=== PATIENT | male | born 1970 | race Caucasian/White ===

== ENCOUNTER → 2016-05-25 | Outpatient (CLI) | payer BC ==
--- NOTE | 2016-05-25 16:47 | CT ---
EXAMINATION TYPE: CT brain wo con DATE OF EXAM: 05/25/2016 1:56 PM COMPARISON: NONE INDICATION: Patient complains of dizziness, motion sickness, headache, and blurry vision. DLP: 975 mGycm, Automated exposure control for dose reduction was used. CONTRAST: None CT of the brain is performed utilizing 3 mm thick sections through the posterior fossa and 3 mm thick sections through the remaining calvarium. Study is performed within 24 hours of arrival to the [facility]. No abnormal hyperdensity is present to suggest an acute intracranial hemorrhage. No mass lesion is evident. No acute infarcts are evident. Ventricles and sulci are appropriate for the patient age. Paranasal sinuses and mastoid air cells within the [id number] are clear. IMPRESSIONS: 1. Normal CT Brain
== END | disposition home or self-care (01) ==
LOC: RADCTMAIN 13:37
PROVIDERS: ATTEND Internal Medicine
DX: M54.2 Cervicalgia (principal); R55 Syncope and collapse
CPT/HCPCS: 70450

== ENCOUNTER → 2016-06-04 | Outpatient (CLI) | payer BC ==
--- NOTE | 2016-06-04 10:39 | US ---
EXAMINATION TYPE: US carotid duplex BILAT DATE OF EXAM: 06/04/2016 9:27 AM COMPARISON: NONE CLINICAL HISTORY: 45-year-old male dizziness, HTN, no history of stroke. TECHNIQUE: Duplex Doppler ultrasound of the carotid and vertebral vasculature. Indirect Doppler crite mary utilized. FINDINGS: Bauer scale images show very mild plaque at both bifurcations. RIGHT: Peak Systolic Velocity (PSV) cm/sec ----- Right CCA: 43.8 ----- Right ICA: 64.5 ----- Right ECA: 77.6 ICA/CCA ratio: 1.5 RIGHT: End Diastole cm/sec ----- Right CCA: 14.0 ----- Right ICA: 27.5 ----- Right ECA: 77.6 LEFT: Peak Systolic Velocity (PSV) cm/sec ----- Left CCA: 66.0 ----- Left ICA: 60.2 ----- Left ECA: 67.7 ICA/CCA ratio: 0.9 LEFT: End Diastole cm/sec ----- Left CCA: 18.8 ----- Left ICA: 29.6 ----- Left ECA: 18.0 VERTEBRALS (direction of flow): Right Vertebral: Antegrade Left Vertebral: Antegrade IMPRESSION: No hemodynamically significant stenosis appreciated in either internal carotid artery. Criteria for Assigning % of Stenosis / Diameter reduction (Estimation based on the indirect measurements of the internal carotid artery velocities (ICA PSV). 1. Normal (no stenosis)=ICA PSV < 125 cm/s: ratio < 2.0: ICA EDV<40 cm/s. 2. Less than 50% stenosis=ICA PSV < 125 cm/s: ratio < 2.0: ICA EDV<40 cm/s. 3. 50 to 69% stenosis=ICA PSV of 125 to 230 cm/s: ration 2.0 ? 4.0: ICA EDV 40-100 cm/s. 4. Greater than 70% stenosis to near occlusion= ICA PSV > 230 cm/s: ratio > 4.0: ICA EDV > 100 cm/s. 5. Near occlusion= ICA PSV velocities may be low or undetectable: variable ratio and ICA EDV. 6. Total occlusion=unable to detect flow.
--- NOTE | 2016-06-04 12:55 | ECHOF ---
Referral Reason:R07.9 chest pain R55 snycope I10 htn MEASUREMENTS -------- HEIGHT: 170.2 cm WEIGHT: 86.2 kg BP: 138/90 RVIDd: 2.9 cm (< 3.3) IVSd: 1.1 cm (0.6 - 1.1) LVIDd: 3.6 cm (3.9 - 5.3) LVPWd: 1.1 cm (0.6 - 1.1) IVSs: 1.5 cm LVIDs: 2.6 cm LVPWs: 1.9 cm LA Diam: 3.9 cm (2.7 - 3.8) LAESV Index (A-L): 27.58 ml/m Ao Diam: 3.2 cm (2.0 - 3.7) MV EXCURSION: 20.347 mm (> 18.000) MV EF SLOPE: 108 mm/s (70 - 150) EPSS: 0.6 cm MV E Home: 0.73 m/s MV DecT: 219 ms MV A Home: 0.78 m/s MV E/A Ratio: 0.94 RAP: 5.00 mmHg RVSP: 14.95 mmHg FINDINGS -------- Sinus rhythm. This was a technically good study. The left ventricular size is normal. There is borderline concentric left ventricular hypertrophy. Overall left ventricular systolic function is normal with, an EF between 60 - 65 %. The right ventricle is normal in size and function. The left atrial size is normal. The right atrium is normal in size. The aortic valve is trileaflet and appears structurally normal. Normal appearing mitral valve. No mitral regurgitation. Trace tricuspid regurgitation present. Right ventricular systolic pressure is normal at < 35 mmHg. Trace/mild (physiologic) pulmonic regurgitation. The aortic root size is normal. Normal inferior vena cava with normal inspiratory collapse consistent with estimated right atrial pressure of 5 mmHg. There is no pericardial effusion. CONCLUSIONS -------- 1. Sinus rhythm. 2. Normal appearing mitral valve. 3. Trace tricuspid regurgitation present. 4. Right ventricular systolic pressure is normal at < 35 mmHg. 5. Trace/mild (physiologic) pulmonic regurgitation. 6. The aortic root size is normal. 7. Normal inferior vena cava with normal inspiratory collapse consistent with estimated right atrial pressure of 5 mmHg. 8. There is no pericardial effusion. 9. This was a technically good study. 10. The left ventricular size is normal. 11. There is borderline concentric left ventricular hypertrophy. 12. Overall left ventricular systolic function is normal with, an EF between 60 - 65 %. 13. The right ventricle is normal in size and function. 14. The left atrial size is normal. 15. The right atrium is normal in size. 16. The aortic valve is trileaflet and appears structurally normal. [employer]TENA[employer]CE WORKER: Radha Scruggs RDCS
== END | disposition home or self-care (01) ==
LOC: RADUSMAIN 09:01
PROVIDERS: ATTEND Internal Medicine
DX: I07.1 Rheumatic tricuspid insufficiency (principal); I37.1 Nonrheumatic pulmonary valve insufficiency; I49.1 Atrial premature depolarization; I10 Essential (primary) hypertension
CPT/HCPCS: 93225; 93226; 93306; 93880

== ENCOUNTER → 2016-06-07 | Outpatient (CLI) | payer BC ==
--- NOTE | 2016-06-07 14:07 | MR ---
EXAMINATION TYPE: MR cervical spine wo con DATE OF EXAM: 06/07/2016 11:37 AM COMPARISON: NONE HISTORY: Cervicalgia, neck pain, headache TECHNIQUE: Multiplanar, multisequence images of the cervical spine were acquired. C2-C3: No evidence for degenerative disc disease. No disc bulge/herniation or protrusion. No Canal stenosis. Foramina are patent bilaterally. C3-C4: No evidence for degenerative disc disease. No disc bulge/herniation or protrusion. No Canal stenosis. Foramina are patent bilaterally. C4-C5: No evidence for degenerative disc disease. No disc bulge/herniation or protrusion. No Canal stenosis. Foramina are patent bilaterally. C5-C6: There is right foraminal stenosis due to uncovertebral joint hypertrophy. No spinal canal sten osis is present. No significant disc bulge or focal disc herniation is evident. C6-C7: Right foraminal stenosis is present from uncovertebral joint hypertrophy. No spinal canal sten osis is present. Facets appear normal. C7-T1: No evidence for degenerative disc disease. No disc bulge/herniation or protrusion. No Canal stenosis. Foramina are patent bilaterally. Cervical segments are intact. There is normal alignment. Cervical spinal cord is of normal signal. Craniovertebral junction relationships are within normal limits. IMPRESSION: Right foraminal narrowing due to uncovertebral joint hypertrophy C5-C6, and C6-C7.
== END | disposition home or self-care (01) ==
LOC: RADMRIMAIN 11:07
PROVIDERS: ATTEND Internal Medicine
DX: M48.02 Spinal stenosis, cervical region (principal)
CPT/HCPCS: 72141

== ENCOUNTER → 2016-07-28 | Outpatient (CLI) | payer BC ==
[2016-07-28 16:43] LABS: Basophils % (A) 1 %; CHCM 34.1; Eosinophils # (A) 0.1 k/uL (0-0.7); Eosinophils % (A) 2 %; HCT 42.9 % (39.0-53.0); HGB 14.5 gm/dL (13.0-17.5); Luc # (Auto) 0.15; Luc % (Auto) 2; Lymphocytes # (A) 2.3 k/uL (1.0-4.8); Lymphocytes % (A) 27 %; MCHC 33.9 g/dL (31.0-37.0); MCV 88.6 fL (80.0-100.0); Mean Platelet Volume 8.2; Monocytes # (A) 0.5 k/uL (0-1.0); Monocytes % (A) 5 %; Neutrophils # (A) 5.5 k/uL (1.3-7.7); Neutrophils % (A) 64 %; RBC 4.84 m/uL (4.30-5.90); RDW 13.5 % (11.5-15.5); WBC 8.6 k/uL (3.8-10.6); WBC (Perox) 8.42
[2016-07-28 16:55] LABS: ALT 40 U/L (21-72); AST 25 U/L (17-59); Alkaline Phosphatase 78 U/L (38-126); Anion Gap 11 mmol/L; Blood Urea Nitrogen 13 mg/dL (9-20); Calcium 9.4 mg/dL (8.4-10.2); Carbon Dioxide 27 mmol/L (22-30); Chloride 101 mmol/L (98-107); Glucose 94 mg/dL (74-99); Non-African American GFR(MDRD) >60 (>60 ml/min/1.73 sqM); Potassium 4.5 mmol/L (3.5-5.1); Sodium 139 mmol/L (137-145); Total Bilirubin 0.6 mg/dL (0.2-1.3)
[2016-07-28 17:17] LABS: Appearance,Urine Clear (Clear); Bilirubin,Urine Negative (Negative); Glucose,Urine (UA) Negative (Negative); Ketones,Urine Negative (Negative); Leukocyte Esterase,Urine Negative (Negative); Nitrite,Urine Negative (Negative); Protein,Urine Negative (Negative); Specific Gravity,Urine 1.005 (1.001-1.035); UA Billing (MACRO vs. MICRO) CHEM; Urobilinogen,Urine <2.0 mg/dL (<2.0)
[2016-07-28 17:42] LABS: Erythrocyte Sedimentation Rate 11 mm/hr (0-15)
[2016-07-30 04:20] LABS: Complement Total (CH50) 199 CAE (54-144)
[2016-08-11 07:52] LABS: Mis test requested (Blood) CD203 (Anti-IgE Recp
== END ==
LOC: LABWHC1 16:03
PROVIDERS: ATTEND Allergy & Immunology
DX: L50.9 Urticaria, unspecified (principal)
CPT/HCPCS: 36415; 80053; 81003; 84432; 84443; 85025; 85652; 86162; 86376; 86800; 88184; 88185

== ENCOUNTER → 2018-09-25 | Outpatient (CLI) | payer BC ==
--- NOTE | 2018-09-25 18:47 | CT ---
EXAMINATION TYPE: CT soft tissue neck w con DATE OF EXAM: 09/25/2018 COMPARISON: None HISTORY: 47-year-old male Chronic sore throat. TECHNIQUE: Contiguous axial scanning of the soft tissues of the neck performed with IV Contrast, mily ent injected with 100ml mL of Isovue 300. Coronal/sagittal reconstructions performed. CT DLP: 780 mGycm Automated exposure control for dose reduction was used. FINDINGS: Visualized intracranial structures, orbits and globes, paranasal sinuses, and mastoid air cells appea r clear. Nasopharynx appears clear. The soft palate is elevated limiting assessment of the nasopharyngeal-oropharyngeal junction. Bilateral hypertrophy of the palatine tonsils there is some faint calcifications in the left falcine tonsil suggests sequela of prior infection. The epiglottis and prevertebral soft tissues are within normal limits. The glottic and subglottic structures as well as the tracheal column appear clear. Mild generalized hazy densities in the visualized upper lungs likely due to generalized atelectasis. Thyroid gland, submandibular glands, and parotid glands appear satisfactory. No cervical lymphadenopathy by CT size criteria. Prominent 1.2 cm left upper cervical lymph node is l ikely reactive/post inflammatory. Additional scattered nonenlarged lymph nodes are present on both si chandler of the neck. Bones: No osseous destructive process. IMPRESSION: BILATERAL PALATINE TONSILLAR HYPERTROPHY. SOME CALCIFICATIONS IN THE LEFT PALATINE TONSIL SUGGESTS SE QUELA OF PRIOR INFECTION.
== END | disposition home or self-care (01) ==
LOC: RADCTMAIN 17:16
PROVIDERS: ATTEND Otolaryngology
DX: J35.1 Hypertrophy of tonsils (principal); J31.2 Chronic pharyngitis
CPT/HCPCS: 70491; Q9967

== ENCOUNTER 2020-06-12 09:48 | Day surgery (SDC) | payer BC ==
[2020-06-10 15:17] VITALS: BMI 32.6
[~2020-06-12 09:48] MED LIST: LACTATED RINGERS 1,000 ML IV SCH
[2020-06-12 10:30] VITALS: TEMP 96.5
[2020-06-12] MEDS ORDERED: LIDOCAINE 1% (10MG/ML) FOR IV START INTRADERMA ONE (10:31)
[2020-06-12] MEDS ORDERED: PROPOFOL 10 MG/ML 20 ML VIAL IV ONE (11:41)
[2020-06-12] MEDS ORDERED: LIDOCAINE 1% INJ 10MG/ML (20 ML MDV) ONE (11:41)
[2020-06-12] MEDS ORDERED: GLYCOPYRROLATE 0.2 MG/ML 2 ML VIAL ONE (11:41)
[2020-06-12] MEDS ORDERED: KETAMINE 10 MG/ML 20 ML VIAL ONE (11:41)
--- NOTE | 2020-06-12 12:16 | P.PCN ---
Date of Procedure: 06/12/20 Description of Procedure: Brief history: Patient is a pleasant 49-year-old female presenting for outpatient colonoscopy for evaluation of odynophagia and screening for malignant neoplasm colon. Patient reports globus sensation and occasional pain on swallowing in the upper esophagus. No PPI therapy. He denies any family history of colon cancer. No change in bowel habits. No prior endoscopy. Procedure performed: Esophagogastroduodenoscopy with biopsy Colonoscopy Estimated blood loss: Minimal. Preoperative diagnosis: Odynophagia, screening for malignant neoplasm colon, no prior colonoscopy reported Anesthesia: MAC Procedure: After informed consent was obtained from the patient was brought into the endoscopy unit and IV sedation was administered by anesthesia under continuous monitoring. Initially upper endoscopy was done. The Olympus GF 190 video endoscope was inserted into the mouth and esophagus intubated without any difficulty and was gradually advanced into the stomach and duodenum and carefully examined. The bulb and second part of the duodenum appeared normal, with biopsies taken. The scope was then withdrawn into the stomach adequately insufflated with air and upon careful examination the antrum and body, cardia and fundus appeared normal, except for some mild scattered erythema in the antrum and body suggestive of mild gastritis with biopsies of the antrum and body taken. The scope was then withdrawn into the esophagus. The GE junction w as located at 40 cm to the incisors and biopsy. It appeared regular with no erythema erosions or ulcerations, with mid esophageal biopsies taken. Rest of the esophagus appeared normal. Patient tolerated the procedure well. At this time the patient continued to remain sedation. Initial digital rectal examination was normal. Olympus CF 190 video colonoscope was then inserted into the rectum and gradually advanced to the cecum without any difficulty. Careful examination was performed as the scope was gradually being withdrawn. The prep was excellent. The cecum, ascending colon, transverse colon, descending colon, sigmoid colon and rectum appeared normal. Retroflexion was performed in the rectum and no lesions were noted, moderate internal hemorrhoids. Patient tolerated the procedure well. Impression: 1. Mild gastritis. Biopsies taken of the duodenum, antrum body, GE junction and midesophagus. No stricture, mass or ulceration of the esophagus noted. 2. Normal-appearing colon from rectum to cecum. Internal hemorrhoids. Recommendations: Findings of this examination were discussed with the patient as well as his family. Okay to resume diet. Okay to resume medications. Recommend trial of Prilosec daily for treatment of possible reflux-induced globus, or OTC antihistamines such as loratadine daily for postnasal drip causing his symptoms of globus which was described and explained to the patient at length. Await pathology from biopsies. Recommend repeat colonoscopy in 10 years for screening for malignant neoplasm of the colon, or sooner if any signs or symptoms which warrant further evaluation develop.
[2020-06-12 12:44] VITALS: RESP 16
[2020-06-12 13:00] VITALS: BP 159/74; PULSE 77
== END 2020-06-12 13:01 | disposition home or self-care (01) ==
LOC: ORWHC2ENDO 09:48
PROVIDERS: ATTEND Internal Medicine
DX: Z12.11 Encounter for screening for malignant neoplasm of colon (principal); K29.50 Unspecified chronic gastritis without bleeding; K20.90 Esophagitis, unspecified without bleeding; J31.2 Chronic pharyngitis; K64.8 Other hemorrhoids; F17.200 Nicotine dependence, unspecified, uncomplicated; F90.9 Attention-deficit hyperactivity disorder, unspecified type; Z79.891 Long term (current) use of opiate analgesic; Z79.899 Other long term (current) drug therapy
CPT/HCPCS: 88305; 43239; J2001; J2704; G0121; 45378